=== PATIENT | male | born 1980 | race Caucasian/White ===

== ENCOUNTER 2017-11-17 11:37 | Emergency (ER) | payer OTHER ==
[~2017-11-17] VITALS: Ht 172.7 cm; Wt 62.5 kg
[2017-11-17 12:08] LABS: HEMATOCRIT 45.2 % (42.0-52.0); HEMOGLOBIN 15.3 gm/dL (14.0-18.0); MCH 32.2 pg (26.0-34.0); MCHC 33.9 g/dL (28.0-37.0); MCV 95.2 fL (80.0-100.0); MPV 6.6 fl. (7.2-11.1); NUCLEATED RBCS 0 /100WBC; PLATELET COUNT* 359 thou/uL (150-400); RBC 4.75 mil/uL (4.50-6.00); RDW-CV 15.1 % (10.5-14.5)
[2017-11-17 12:13] LABS: CALCIUM 9.9 mg/dL (8.5-10.1); CREATININE 0.6 mg/dL (0.6-1.3); POTASSIUM 4.2 mmol/L (3.5-5.1)
[2017-11-17 12:18] LABS: ALBUMIN 4.4 g/dL (3.4-5.0); TOTAL BILIRUBIN 0.5 mg/dL (<0.1-1.0); TOTAL PROTEIN 7.6 g/dL (6.4-8.2)
[2017-11-17 12:40] LABS: URINE BILIRUBIN NEGATIVE (Negative); URINE BLOOD NEGATIVE (Negative); URINE CLARITY CLEAR; URINE COLOR YELLOW; URINE GLUCOSE-RANDOM NEGATIVE (Negative); URINE KETONES NEGATIVE (Negative); URINE LEUKOCYTES-REFLEX NEGATIVE (Negative); URINE NITRITE-REFLEX NEGATIVE (Negative); URINE PROTEIN NEGATIVE (Negative); URINE SPECIFIC GRAVITY <= 1.005 (1.005-1.030); URINE UROBILINOGEN 0.2 E.U./dl (0.2-1.0)
[2017-11-17 12:58] LABS: AMP/METHAMP Negative (Negative); BARBITURATES Negative (Negative); BENZODIAZEPINES Negative (Negative); COCAINE Negative (Negative); METHADONE Negative (Negative); OPIATES Negative (Negative); PCP Negative (Negative); THC Negative (Negative)
[2017-11-17 13:53] LABS: ABSOLUTE BASOPHILS 0.1 thou/uL (0.0-0.2); ABSOLUTE LYMPHOCYTES 0.7 thou/uL (0.8-5.3); ABSOLUTE MONOCYTES 0.3 thou/uL (0.0-1.2)
[2017-11-17 13:54] LABS: MACROCYTES Occasional; PLATELET ESTIMATE ADEQUATE
[2017-11-17] MEDS ORDERED: HYDROXYZINE HCL25 M2 PO (14:55)
[2017-11-17 14:58] VITALS: BP 116/74
--- NOTE | 2017-11-17 17:34 | EKG ---
[place] [address] ELECTROCARDIOGRAM REPORT Name: KISHORE CHANEL Room: [facility]#: [id number] Admission: 11/17/17 Attend Phys: Discharge: 11/17/17 Date of : 80 Report #: [id number] THIS REPORT FOR: //name// [facility] ED Test Date: 2017-11-17 Test Time: 11:43:30 Pat Name: KISHORE CHANEL Department: Room: Gender: M Training Executive: Jennifer MURPHY : 1980 Requested By: Marie Segal Order Number: [id number] MD: Errol Jones Measurements Intervals [place] Rate: 108 P: 46 IN: 155 QRS: -8 QRSD: 89 T: 56 QT: 328 QTc: 440 Interpretive Statements Sinus tachycardia Probable septal infarct, old No previous ECG available for comparison Electronically Signed On 11-17-2017 17:34:44 CDT by Errol Jones [email or web address] <ELECTRONICALLY SIGNED> By: Errol Jones MD, [facility] 11/17/17 1734 1143 1143 Errol Jones MD, FACC /EPI
== END 2017-11-17 15:10 | disposition home or self-care (01) ==
LOC: M.ERS 11:37
PROVIDERS: Nurse Practitioner Family
DX: F41.9 Anxiety disorder, unspecified (principal); F10.10 Alcohol abuse, uncomplicated; R25.1 Tremor, unspecified; Z88.0 Allergy status to penicillin; Z88.5 Allergy status to narcotic agent

== ENCOUNTER 2018-02-06 14:01 | Inpatient (IN) | payer OTHER ==
[~2018-02-06] VITALS: Ht 170.2 cm; Wt 59.0 kg
[~2018-02-06 14:01] MED LIST: HYDROXYZINE HCL25 M2 PO
[2018-02-06 14:05] VITALS: BP 153/78
[2018-02-06] MEDS ORDERED: OMEPRAZOLE40 MG PO (14:21)
[2018-02-06] MEDS ORDERED: EFFEXOR XR37.5 MG PO (14:21)
[2018-02-06] MEDS ORDERED: ROSUVASTATIN CA20 MG PO (14:22)
[2018-02-06 14:40] LABS: ABSOLUTE BASOPHILS 0.1 thou/uL (0.0-0.2); ABSOLUTE LYMPHOCYTES 1.6 thou/uL (0.8-5.3); ABSOLUTE MONOCYTES 0.6 thou/uL (0.0-1.2); ABSOLUTE NEUTROPHILS 6.6 thou/uL (1.6-8.1); BASOPHILS 0.9 %; EOSINOPHILS 0.2 %; HEMATOCRIT 45.3 % (42.0-52.0); HEMOGLOBIN 15.3 gm/dL (14.0-18.0); LYMPHOCYTES 18.5 %; MCH 31.4 pg (26.0-34.0); MCHC 33.7 g/dL (28.0-37.0); MCV 93.3 fL (80.0-100.0); MONOCYTES 6.4 %; MPV 6.4 fl. (7.2-11.1); NUCLEATED RBCS 0 /100WBC; PLATELET COUNT* 244 thou/uL (150-400); RBC 4.86 mil/uL (4.50-6.00); RDW-CV 14.6 % (10.5-14.5); WBC 8.9 thou/uL (4.0-11.0)
[2018-02-06 14:48] LABS: ANION GAP 14 mmol/L (7-16); BUN 16 mg/dL (7-18); CALCIUM 8.5 mg/dL (8.5-10.1); CHLORIDE 100 mmol/L (98-107); CO2 23 mmol/L (21-32); CREATININE 0.7 mg/dL (0.6-1.3); GLUCOSE 137 mg/dL (70-99); POTASSIUM 3.6 mmol/L (3.5-5.1); SODIUM 137 mmol/L (136-145)
[2018-02-06 14:50] LABS: APTT 22.8 Seconds (25.0-31.3); PROTIME 10.3 Seconds (9.20-11.50)
[2018-02-06 14:55] LABS: ALBUMIN 3.5 g/dL (3.4-5.0); ALKALINE PHOSPHATASE 103 U/L (46-116); LIPASE 1968 U/L (73-393); SGOT 182 U/L (15-37); SGPT 70 U/L (30-65); TOTAL BILIRUBIN 0.7 mg/dL (<0.1-1.0); TOTAL PROTEIN 6.7 g/dL (6.4-8.2); TROPONIN-I LEVEL <0.06 ng/mL (<0.06)
[2018-02-06 16:22] VITALS: BP 126/91
[2018-02-06 16:35] VITALS: BP 135/92
[2018-02-06 18:00] VITALS: BP 127/95
[2018-02-06 19:40] VITALS: BP 124/83
[2018-02-07] VITALS (7 sets, daily range): BP systolic 129–141; BP diastolic 62–96
[2018-02-07 08:38] LABS: ALBUMIN 2.9 g/dL (3.4-5.0); CALCIUM 7.8 mg/dL (8.5-10.1); CREATININE 0.5 mg/dL (0.6-1.3); POTASSIUM 3.2 mmol/L (3.5-5.1); TOTAL BILIRUBIN 1.1 mg/dL (<0.1-1.0); TOTAL PROTEIN 5.8 g/dL (6.4-8.2)
--- NOTE | 2018-02-07 12:59 | EKG ---
[place] [address] ELECTROCARDIOGRAM REPORT Name: KISHORE CHANEL Room: [address] ADM IN [facility]#: [id number] Admission: 02/06/18 Attend Phys: Flynn Sarmiento Discharge: Date of : [birth year] Report #: [id number] THIS REPORT FOR: //name// [facility] ED Test Date: 2018-02-06 Test Time: 14:12:21 Pat Name: KISHORE CHANEL Department: Room: [facility] Gender: M Cinder Block Mason: : 1980 Requested By: Mansi Rodriguez Order Number: [id number] MD: Errol Jones Measurements Intervals [place] Rate: 110 P: 56 [place]: 155 QRS: 12 QRSD: 98 T: 53 QT: 335 QTc: 454 Interpretive Statements Sinus tachycardia Probable septal infarct, old Compared to ECG 11/17/2017 11:43:30 Myocardial infarct finding still present Electronically Signed On 02-07-2018 12:59:33 CDT by Errol Jones [email or web address] <ELECTRONICALLY SIGNED> By: Errol Jones MD, [facility] 02/07/18 1259 1412 1412 Errol Jones MD, [facility] /EPI
[2018-02-08 04:00] VITALS: BP 135/94
[2018-02-08 04:49] LABS: ALBUMIN 3.3 g/dL (3.4-5.0); CALCIUM 8.4 mg/dL (8.5-10.1); CREATININE 0.6 mg/dL (0.6-1.3); MAGNESIUM 1.7 mg/dL (1.8-2.4); PHOSPHORUS* 3.1 mg/dL (2.5-4.9); TOTAL PROTEIN 6.3 g/dL (6.4-8.2)
[2018-02-08 04:54] LABS: POTASSIUM 4.2 mmol/L (3.5-5.1)
[2018-02-08 08:10] VITALS: BP 148/100
[2018-02-08] MEDS ORDERED: HYDROXYZINE HCL25 M2 PO (10:40)
[2018-02-08] MEDS ORDERED: OMEPRAZOLE40 MG PO (10:40)
[2018-02-08] MEDS ORDERED: EFFEXOR XR37.5 MG PO (10:40)
[2018-02-08] MEDS ORDERED: ROSUVASTATIN CA20 MG PO (10:40)
[2018-02-08 11:15] VITALS: BP 148/100
[2018-02-08 11:16] LABS: CHOLESTEROL 205 mg/dL (<200); HDL CHOLESTEROL 108 mg/dL (>40); LDL CHOLESTEROL 83 mg/dL (<100); TC:HDL 1.9 Ratio (Not establshd); TRIGLYCERIDE 74 mg/dL (<150); VLDL 15 mg/dL (<40)
[2018-02-08 11:17] LABS: SERUM ASSESSMENT Clear
[2018-02-08] MEDS ORDERED: NICOTINE TRANSD21 M1 (11:24)
[2018-02-08] MEDS ORDERED: PRENATAL PO (11:25)
[2018-02-08] MEDS ORDERED: VITAMIN B-1100 M1 PO (11:26)
[2018-02-08] MEDS ORDERED: ATIVAN1 MG PO (11:27)
--- NOTE | 2018-02-17 13:22 | CON ---
[address] [address] CONSULTATION Name: KISHORE CHANEL Room: [address]#: [id number] Admission: 02/06/18 Attend Phys: Flynn Sarmiento Discharge: 02/08/18 Date of : [birth year] Report #: [id number] THIS REPORT FOR: //name// CC: NANCY physician/PCP Nasir Tejeda DATE OF SERVICE: 02/07/2018 HISTORY OF PRESENT ILLNESS: This is a pleasant 37-year-old male, with history of chronic alcohol abuse, who is presenting with epigastric abdominal pain. The patient reports the pain began 3 days back and it was located in the epigastrium. The patient reports that the pain is severe, burning in character and nonradiating. The patient reports the pain has no particular aggravating or alleviating factors and this is his first episode of such pain. Pain is associated with nausea and vomiting. The patient reports vomiting several times per day over the last few days. He denies any hematemesis, hematochezia or diarrhea. The patient reports that he drinks 1 pint of whiskey every day, and he has been doing this for several years in the past. The patient also reports smoking, and he smokes a pack a day, has been doing this for 20+ years. PAST MEDICAL HISTORY: Significant for hypertension and hypercholesterolemia. PAST SURGICAL HISTORY: The patient had jaw surgery from trauma. SOCIAL HISTORY: As mentioned above, he consumes 1 pint of whiskey a day and was a pack a day smoker. He denies any recreational drug use. FAMILY HISTORY: Reviewed and nonsignificant. PHYSICAL EXAMINATION: VITAL SIGNS: Temperature 36.9, pulse rate 74, respirations 18, blood pressure 140/95. GENERAL: The patient is alert, awake, oriented x 3. HEENT: Pupils are equal, reactive to light and accommodation. Mucous membranes are moist. There is no congestion. NECK: Supple. There is no supraclavicular lymphadenopathy. CARDIOVASCULAR: Rate and rhythm regular, S1, S2 present. LUNGS: Clear to auscultation bilaterally. ABDOMEN: Epigastric tenderness present. There is no guarding, no rigidity. Bowel sounds are present. EXTREMITIES: Warm, well perfused. There is no focal neurological deficit. SKIN: Warm and dry. LABORATORY DATA: WBC count 8.9, hemoglobin 15.3, hematocrit 45.3, platelet count 244. Sodium 135, potassium 3.2, chloride 101, bicarbonate 27, BUN 9, creatinine 0.5, total bilirubin 1.1, AST 93, ALT 51. [place] [address] CONSULTATION Name: KISHORE CHANEL Room: [address] IN ..#: [id number] Admission: 02/06/18 Attend Phys: Flynn Sarmiento Discharge: 02/08/18 Date of : [birth year] Report #: [id number] 1968. INR 1.0. ASSESSMENT AND PLAN: This is a pleasant 37-year-old male presenting with epigastric abdominal pain. The patient found to have significant history of alcohol abuse, and lipase was elevated on presentation. All of the above suggests the presence of acute pancreatitis. The patient appears to have mild acute pancreatitis. The presence of local complications is not known as he did not have any cross sectional imaging. I will order ultrasound of the abdomen to look for gallstones or bile duct stones. Since the patient is improving clinically, we will hold off on ordering CT scan, but this can be done if the patient begins showing signs of deterioration and is unable to tolerate p.o. diet. Continue conservative management for acute pancreatitis. Strongly encouraged cessation of both smoking and alcohol use as both of them contribute to development of chronic pancreatitis and pancreatic cancer. <ELECTRONICALLY SIGNED> By: Farhad Hathaway MD 02/17/18 1322 1458 1848Farhad Hathaway MD /nt
== END 2018-02-08 12:41 | disposition home or self-care (01) | DRG 440 ==
LOC: M.ERS 14:01 → M.TBA-ER 15:56 → M.3W 15:56
PROVIDERS: Personal Emergency Response Attendant; ADMIT Internal Medicine
DX: K85.90 Acute pancreatitis without necrosis or infection, unspecified (principal); F41.9 Anxiety disorder, unspecified; E78.00 Pure hypercholesterolemia, unspecified; K21.9 Gastro-esophageal reflux disease without esophagitis; F17.210 Nicotine dependence, cigarettes, uncomplicated; F10.10 Alcohol abuse, uncomplicated; Y90.9 Presence of alcohol in blood, level not specified; I10 Essential (primary) hypertension; Z88.8 Allergy status to other drugs, medicaments and biological substances; Z88.0 Allergy status to penicillin; Z79.899 Other long term (current) drug therapy; Z83.79 Family history of other diseases of the digestive system

== ENCOUNTER 2018-03-20 19:17 | Inpatient (IN) | payer OTHER ==
[~2018-03-20] VITALS: Ht 170.2 cm; Wt 60.1 kg
--- NOTE | ~2018-03-20 | EKG ---
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
[~2018-03-20 19:17] MED LIST changes: +ATIVAN1 MG PO; +EFFEXOR XR37.5 MG PO; +NICOTINE TRANSD21 M1; +OMEPRAZOLE40 MG PO; +PRENATAL PO; +ROSUVASTATIN CA20 MG PO; +VITAMIN B-1100 M1 PO
[2018-03-20 19:22] VITALS: BP 149/98
[2018-03-20] MEDS ORDERED: GARLIC1 EACH PO (19:33)
[2018-03-20 20:09] LABS: ABSOLUTE BASOPHILS 0.1 thou/uL (0.0-0.2); ABSOLUTE EOSINOPHILS 0.2 thou/uL (0.0-0.7); ABSOLUTE LYMPHOCYTES 2.6 thou/uL (0.8-5.3); ABSOLUTE MONOCYTES 0.5 thou/uL (0.0-1.2); ABSOLUTE NEUTROPHILS 2.2 thou/uL (1.6-8.1); BASOPHILS 1.3 %; EOSINOPHILS 3.6 %; HEMATOCRIT 45.3 % (42.0-52.0); HEMOGLOBIN 15.2 gm/dL (14.0-18.0); LYMPHOCYTES 46.6 %; MCH 32.2 pg (26.0-34.0); MCHC 33.6 g/dL (28.0-37.0); MONOCYTES 8.3 %; MPV 6.7 fl. (7.2-11.1); NUCLEATED RBCS 0 /100WBC; PLATELET COUNT* 257 thou/uL (150-400); POLYS 40.2 %; RBC 4.72 mil/uL (4.50-6.00); RDW-CV 16.1 % (10.5-14.5); WBC 5.5 thou/uL (4.0-11.0)
[2018-03-20 20:16] LABS: ANION GAP 9 mmol/L (7-16); BUN 12 mg/dL (7-18); CALCIUM 8.5 mg/dL (8.5-10.1); CHLORIDE 106 mmol/L (98-107); CO2 28 mmol/L (21-32); CREATININE 0.7 mg/dL (0.6-1.3); GLUCOSE 120 mg/dL (70-99); POTASSIUM 3.8 mmol/L (3.5-5.1); SODIUM 143 mmol/L (136-145)
[2018-03-20 20:27] LABS: ALBUMIN 3.8 g/dL (3.4-5.0); ALKALINE PHOSPHATASE 128 U/L (46-116); LIPASE 719 U/L (73-393); NT-PRO BRAIN NAT PEPTIDE 10 pg/mL (<300); SGOT 158 U/L (15-37); SGPT 110 U/L (30-65); TOTAL BILIRUBIN 0.3 mg/dL (<0.1-1.0); TOTAL PROTEIN 7.2 g/dL (6.4-8.2); TROPONIN-I LEVEL <0.06 ng/mL (<0.06)
[2018-03-20 21:50] VITALS: BP 142/94
[2018-03-20 22:05] VITALS: BP 145/89
[2018-03-21] VITALS (7 sets, daily range): BP systolic 110–143; BP diastolic 59–91
[2018-03-21 03:21] LABS: URINE BILIRUBIN NEGATIVE (Negative); URINE BLOOD NEGATIVE (Negative); URINE CLARITY CLEAR; URINE COLOR YELLOW; URINE GLUCOSE-RANDOM NEGATIVE (Negative); URINE KETONES NEGATIVE (Negative); URINE LEUKOCYTES-REFLEX NEGATIVE (Negative); URINE NITRITE-REFLEX NEGATIVE (Negative); URINE PROTEIN NEGATIVE (Negative); URINE SPECIFIC GRAVITY 1.025 (1.005-1.030); URINE UROBILINOGEN 0.2 E.U./dl (0.2-1.0)
[2018-03-21 04:58] LABS: HEMATOCRIT 39.9 % (42.0-52.0); HEMOGLOBIN 13.4 gm/dL (14.0-18.0); MCH 32.5 pg (26.0-34.0); MCHC 33.6 g/dL (28.0-37.0); MCV 96.8 fL (80.0-100.0); MPV 6.6 fl. (7.2-11.1); RBC 4.13 mil/uL (4.50-6.00); RDW-CV 16.5 % (10.5-14.5); WBC 4.8 thou/uL (4.0-11.0)
[2018-03-21 05:25] LABS: ALBUMIN 3.1 g/dL (3.4-5.0); CALCIUM 7.8 mg/dL (8.5-10.1); CREATININE 0.6 mg/dL (0.6-1.3); POTASSIUM 3.9 mmol/L (3.5-5.1); TOTAL BILIRUBIN 0.4 mg/dL (<0.1-1.0); TOTAL PROTEIN 5.7 g/dL (6.4-8.2)
[2018-03-21] MEDS ORDERED: IBUPROFEN 600600 M1 PO (09:44)
[2018-03-21] MEDS ORDERED: CARAFATE 1 GM TA1 G1 PO (09:44)
[2018-03-21] MEDS ORDERED: PRENATAL PO (09:44)
[2018-03-21] MEDS ORDERED: PANTOPRAZOLE SO40 M1 PO (09:44)
--- NOTE | 2018-03-21 17:51 | EKG ---
[place] [address] ELECTROCARDIOGRAM REPORT Name: KISHORE CHANEL Room: [address] ADM IN ..#: [id number] Admission: 03/20/18 Attend Phys: Damien Barajas MD Discharge: Date of : [birth year] Report #: [id number] THIS REPORT FOR: //name// [facility] ED Test Date: 2018-03-20 Test Time: 19:27:16 Pat Name: KISHORE CHANEL Department: Room: [address] Gender: M Gynecologist: : 1980 Requested By: Damien Barajas Order Number: [id number] MD: Neil Mota Measurements Intervals [place] Rate: 95 P: 53 [place]: 131 QRS: 5 QRSD: 98 T: 49 QT: 351 QTc: 442 Interpretive Statements Sinus rhythm Compared to ECG 02/06/2018 14:12:21 Sinus tachycardia no longer present Myocardial infarct finding no longer present Electronically Signed On 03-21-2018 17:51:15 CDT by Neil Mota [email or web address] <ELECTRONICALLY SIGNED> By: Neil Mota MD, [facility] 03/21/18 1751 26 26 Neil Mota MD, FACC /EPI
--- NOTE | 2018-03-21 17:52 | EKG ---
[place] [address] ELECTROCARDIOGRAM REPORT Name: KISHORE CHANEL Room: [address] ADM IN ..#: [id number] Admission: 03/20/18 Attend Phys: Damien Barajas MD Discharge: Date of : [birth year] Report #: [id number] THIS REPORT FOR: //name// [facility] Test Date: 2018-03-20 Test Time: 22:42:29 Pat Name: KISHORE CHANEL Department: Room: [facility] Gender: M Coding Compliance Auditor: UNKNOWN : 1980 Requested By: Annette Cole Order Number: [id number] MD: Neil Mota Measurements Intervals [place] Rate: 96 P: 119 [place]: 148 QRS: 170 QRSD: 104 T: 123 QT: 349 QTc: 441 Interpretive Statements Right and left arm electrode reversal, interpretation assumes no reversal Sinus tachycardia Right axis deviation Baseline wander in lead(s) V4,V6 Compared to ECG 02/06/2018 14:12:21 Right-axis deviation now present Electronically Signed On 03-21-2018 17:52:06 CDT by Neil Mota [email or web address] <ELECTRONICALLY SIGNED> By: Neil Mota MD, FACC 03/21/18 1752 2242 2242 Neil Mota MD, FACC /EPI
[2018-03-22] VITALS (7 sets, daily range): BP systolic 134–156; BP diastolic 81–104
[2018-03-22 04:38] LABS: HEMATOCRIT 43.3 % (42.0-52.0); HEMOGLOBIN 14.5 gm/dL (14.0-18.0); MCHC 33.4 g/dL (28.0-37.0); MCV 95.7 fL (80.0-100.0); MPV 6.8 fl. (7.2-11.1); RBC 4.52 mil/uL (4.50-6.00); RDW-CV 16.1 % (10.5-14.5); WBC 4.8 thou/uL (4.0-11.0)
[2018-03-22 05:00] LABS: ALBUMIN 3.3 g/dL (3.4-5.0); CALCIUM 8.4 mg/dL (8.5-10.1); CREATININE 0.6 mg/dL (0.6-1.3); MAGNESIUM 1.6 mg/dL (1.8-2.4); POTASSIUM 3.3 mmol/L (3.5-5.1); TOTAL BILIRUBIN 1.1 mg/dL (<0.1-1.0); TOTAL PROTEIN 6.3 g/dL (6.4-8.2)
[2018-03-22] MEDS ORDERED: ATIVAN1 MG PO (10:32)
== END 2018-03-22 14:50 | disposition home or self-care (01) | DRG 391 ==
LOC: M.ERS 19:17 → M.TBA-ER 21:06 → M.2W 21:06
PROVIDERS: Emergency Medicine; Internal Medicine; ADMIT Internal Medicine
DX: K21.9 Gastro-esophageal reflux disease without esophagitis (principal); K85.90 Acute pancreatitis without necrosis or infection, unspecified; F41.9 Anxiety disorder, unspecified; E78.00 Pure hypercholesterolemia, unspecified; I10 Essential (primary) hypertension; F17.200 Nicotine dependence, unspecified, uncomplicated; Y90.9 Presence of alcohol in blood, level not specified; F10.229 Alcohol dependence with intoxication, unspecified; Z88.0 Allergy status to penicillin; Z88.8 Allergy status to other drugs, medicaments and biological substances; Z79.899 Other long term (current) drug therapy; Z28.21 Immunization not carried out because of patient refusal

== ENCOUNTER 2018-09-26 12:43 | Inpatient (IN) | payer OTHER ==
[~2018-09-26] VITALS: Ht 170.2 cm; Wt 65.3 kg
--- NOTE | ~2018-09-26 | PROC ---
[address] [address] PROCEDURE REPORT Name: KISHORE CHANEL Room: [address] IN ..#: [id number] Admission: 09/26/18 Attend Phys: Damien Barajas MD Discharge: 09/28/18 Date of : [birth year] Report #: [id number] THIS REPORT FOR: //name// For GI report, please see the Provation report in Perceptive 7 content. By: 0830Medical Records Staff TERA /KADIE
[~2018-09-26 12:43] MED LIST changes: +CARAFATE 1 GM TA1 G1 PO; +GARLIC1 EACH PO; +IBUPROFEN 600600 M1 PO; +PANTOPRAZOLE SO40 M1 PO
[2018-09-26 12:50] VITALS: BP 156/92
[2018-09-26] MEDS ORDERED: ZOFRAN ODT4 MG PO (12:55)
[2018-09-26 13:26] LABS: ABSOLUTE BASOPHILS 0.1 thou/uL (0.0-0.2); ABSOLUTE LYMPHOCYTES 1.1 thou/uL (0.8-5.3); ABSOLUTE MONOCYTES 0.5 thou/uL (0.0-1.2); ABSOLUTE NEUTROPHILS 3.4 thou/uL (1.6-8.1); BASOPHILS 1.2 %; EOSINOPHILS 0.4 %; HEMATOCRIT 44.9 % (42.0-52.0); HEMOGLOBIN 15.7 gm/dL (14.0-18.0); LYMPHOCYTES 21.9 %; MCH 32.9 pg (26.0-34.0); MCHC 34.9 g/dL (28.0-37.0); MCV 94.3 fL (80.0-100.0); MONOCYTES 9.2 %; MPV 6.9 fl. (7.2-11.1); NUCLEATED RBCS 0 /100WBC; PLATELET COUNT* 205 thou/uL (150-400); POLYS 67.3 %; RBC 4.76 mil/uL (4.50-6.00); RDW-CV 14.1 % (10.5-14.5); WBC 5.1 thou/uL (4.0-11.0)
[2018-09-26 13:32] LABS: CALCIUM 9.4 mg/dL (8.5-10.1); CREATININE 0.8 mg/dL (0.6-1.3); POTASSIUM 3.3 mmol/L (3.5-5.1)
[2018-09-26 13:37] LABS: ALBUMIN 3.9 g/dL (3.4-5.0); TOTAL BILIRUBIN 1.4 mg/dL (<0.1-1.0); TOTAL PROTEIN 7.4 g/dL (6.4-8.2)
[2018-09-26 14:57] LABS: URINE BILIRUBIN NEGATIVE (Negative); URINE BLOOD NEGATIVE (Negative); URINE CLARITY CLEAR; URINE COLOR DARK YELLOW; URINE GLUCOSE-RANDOM NEGATIVE (Negative); URINE KETONES TRACE (Negative); URINE LEUKOCYTES-REFLEX NEGATIVE (Negative); URINE NITRITE-REFLEX NEGATIVE (Negative); URINE PROTEIN TRACE (Negative); URINE UROBILINOGEN 0.2 E.U./dl (0.2-1.0)
--- NOTE | 2018-09-26 15:29 | EKG ---
[place] [address] ELECTROCARDIOGRAM REPORT Name: KISHORE CHANEL Room: [facility]#: [id number] Admission: 09/26/18 Attend Phys: Discharge: Date of : [birth year] Report #: [id number] THIS REPORT FOR: //name// [facility] ED Test Date: 2018-09-26 Test Time: 12:49:35 Pat Name: KISHORE CHANEL Department: Room: Gender: M Oyster Preparer: SEVERIANO : 1980 Requested By: Neetu Solomon Order Number: [id number] Anusha MD: Errol Jones Measurements Intervals [place] Rate: 110 P: 76 [place]: 131 QRS: 35 QRSD: 92 T: 26 QT: 351 QTc: 475 Interpretive Statements Sinus tachycardia artifact noted LAE, consider biatrial enlargement Anteroseptal infarct, old Compared to ECG 03/20/2018 22:42:29 Myocardial infarct finding now present Right-axis deviation no longer present Electronically Signed On 09-26-2018 15:29:37 CDT by Errol Jones [email or web address] <ELECTRONICALLY SIGNED> By: Errol Jones MD, [facility] 09/26/18 1529 1249 1249 Errol Jones MD, [facility] /EPI
[2018-09-26 17:33] VITALS: BP 128/92
[2018-09-26 18:00] VITALS: BP 129/96
[2018-09-26 18:05] VITALS: BP 121/79
[2018-09-26 20:10] VITALS: BP 139/92
[2018-09-26 20:20] LABS: AMP/METHAMP Negative (Negative); BARBITURATES Negative (Negative); BENZODIAZEPINES Negative (Negative); COCAINE Negative (Negative); METHADONE Negative (Negative); OPIATES POSITIVE (Negative); PCP Negative (Negative); THC POSITIVE (Negative)
[2018-09-27] VITALS: BP 129/86
[2018-09-27 04:00] VITALS: BP 157/92
[2018-09-27 05:29] LABS: HEMATOCRIT 42.5 % (42.0-52.0); HEMOGLOBIN 14.1 gm/dL (14.0-18.0); MCH 32.1 pg (26.0-34.0); MCHC 33.1 g/dL (28.0-37.0); MCV 96.9 fL (80.0-100.0); MPV 7.5 fl. (7.2-11.1); RBC 4.39 mil/uL (4.50-6.00); RDW-CV 14.3 % (10.5-14.5); WBC 4.6 thou/uL (4.0-11.0)
[2018-09-27 06:04] LABS: ALBUMIN 3.1 g/dL (3.4-5.0); CALCIUM 8.2 mg/dL (8.5-10.1); CREATININE 0.7 mg/dL (0.6-1.3); MAGNESIUM 1.6 mg/dL (1.8-2.4); POTASSIUM 3.7 mmol/L (3.5-5.1); TOTAL BILIRUBIN 1.3 mg/dL (<0.1-1.0); TOTAL PROTEIN 6.2 g/dL (6.4-8.2)
[2018-09-27 08:18] VITALS: BP 140/95
[2018-09-27 13:32] VITALS: BP 157/95
[2018-09-27 17:16] VITALS: BP 130/90
[2018-09-27 20:00] VITALS: BP 142/90
[2018-09-28] VITALS: BP 127/96
[2018-09-28 04:00] VITALS: BP 106/66
[2018-09-28 06:06] LABS: ALBUMIN 3.4 g/dL (3.4-5.0); CREATININE 0.7 mg/dL (0.6-1.3); MAGNESIUM 2.1 mg/dL (1.8-2.4); PHOSPHORUS* 3.9 mg/dL (2.5-4.9); POTASSIUM 3.3 mmol/L (3.5-5.1); TOTAL BILIRUBIN 1.2 mg/dL (<0.1-1.0); TOTAL PROTEIN 6.8 g/dL (6.4-8.2)
[2018-09-28 07:45] VITALS: BP 126/78
--- NOTE | 2018-09-28 12:52 | CON ---
[address] [address] CONSULTATION Name: KISHORE CHANEL Room: [address] IN [facility]#: [id number] Admission: 09/26/18 Attend Phys: Damien Barajas MD Discharge: Date of : [birth year] Report #: [id number] THIS REPORT FOR: //name// CC: FAM physician/PCP Damien Barajas MD DATE OF SERVICE: 09/27/2018 REQUESTING PHYSICIAN: Daimen Barajas M.D. REASON FOR CONSULTATION: Epigastric pain and nausea and intractable vomiting. HISTORY OF PRESENT ILLNESS: This is a 38-year-old male with history of alcoholism, who admits to drinking 10 shots of whiskey per day. The patient has had multiple admissions at [facility] in [facility] for recurrent pancreatitis. Since admission, he had LFTs and lipase checked. His LFTs are elevated and consistent with alcoholic liver disease. His lipase is in 400 range. The patient also had initial persistent vomiting, which has subsided. He is currently on n.p.o. status and reports that his overall condition has improved since yesterday. PAST MEDICAL HISTORY: Significant for history of pancreatitis, alcoholism, GERD, hypercholesterolemia, hypertension, vasectomy and jaw surgery. ALLERGIES: Significant for CODEINE and PENICILLIN. MEDICATIONS: Please refer to MAR. SOCIAL HISTORY: The patient lives at home. He is employed. He has long history of alcoholism and he admits to smoking cigarettes. FAMILY HISTORY: Negative for GI malignancy. PHYSICAL EXAMINATION: VITAL SIGNS: Reveals blood pressure of 140/95, respirations 16, pulse 71 and temperature 98.1. LUNGS: Clear. CARDIOVASCULAR: Regular. ABDOMEN: Soft, mildly tender to palpation in the epigastric region. Bowel sounds are positive. NEUROLOGICAL: The patient is alert and oriented x 3. LABORATORY DATA: Labs reveal sodium of 141, potassium 3.7, BUN is 6, [place] [address] CONSULTATION Name: KISHORE CHANEL Jose Alberto Room: [address] IN [facility]#: [id number] Admission: 09/26/18 Attend Phys: Damien Barajas MD Discharge: Date of : [birth year] Report #: [id number] 0.7 and glucose 92. AST is 269 and ALT is 112. Alkaline phosphatase is 132, total bilirubin is 1.3 and albumin is 3.1. WBC is 4.6 with hemoglobin of 14.1 and platelet of 175. IMAGING DATA: CT of abdomen and pelvis was obtained on admission. This was significant for diffuse fatty infiltration of the liver and 2 cm triangular-shaped area of the decreased density within the medial segment of liver, which may represent focal fatty infiltration. There are also mild peripancreatic and periduodenal inflammatory changes adjacent to the head of the pancreas and second portion of the duodenum. ASSESSMENT AND PLAN: Given CT findings, we will perform an upper endoscopy to further evaluate his upper gastrointestinal including the duodenum. The patient needs to be abstinent from alcohol as he has had recurrent pancreatitis secondary to alcohol use. We will make further recommendation based on finding. Meanwhile, I will allow him to have clear liquids and also follow up his lipase and CMP. <ELECTRONICALLY SIGNED> By: Norman Reddy MD 09/28/18 1252 1125 2225Norman Reddy MD /nt
[2018-09-28] MEDS ORDERED: PROTONIX40 M1 PO (14:40)
[2018-09-28 14:47] VITALS: BP 126/78
[2018-09-28 15:14] VITALS: BP 126/78
--- NOTE | 2018-09-30 16:06 | PATH ---
[address] [address] PATHOLOGY RPT PROCEDURE Name: JOSUE CHANEL Room: [address] IN .R.#: [id number] Admission: 09/26/18 Date of : [birth year] Discharge: 09/28/18 Report #: [id number] Path Case #: [id number] [facility] Accession Number: [id number] . 01 Material submitted: . esophagus - BIOPSY ESOPHAGUS POSSIBLE BARRETTS . 01 Clinical history: . None provided . 02 Diagnosis: Biopsy of esophagus: - Benign esophageal and gastric/columnar types mucosa with mild chronic and active inflammation typical of reflux, negative for definite/diagnostic goblet cells/Sandra's metaplasia, granulomas and dysplasia. (MARISA:ted; 09/30/2018) MBMasha/09/30/2018 . 02 Electronically signed: . Davie Brito MD, Pathologist NPI- [id number] . 01 Gross description: . Received in formalin labeled "Josue Chanel, biopsy of esophagus, possible Sandra's," are 2 segments of loco soft tissue measuring 0.3 x 0.2 x 0.1 cm in aggregate dimensions and ranging from 0.1 to 0.2 cm in maximum dimension. The specimen is submitted entirely in cassette A1. (TSD; 09/29/2018) TOB/TOB . 02 Pathologist provided ICD-10: K20.9 . 02 CPT . 525979 Specimen Comment: A courtesy copy of this report has been sent to Specimen Comment: [phone], . Specimen Comment: Report sent to / DR PRATHER Performed at: [address], [place] [address] MD Tone Babcock MD Phone: [phone] Performed at: 02 [facility] [address], [place], [place] [address] MD Davie Brito MD Phone: [phone]
== END 2018-09-28 15:21 | disposition home or self-care (01) | DRG 432 ==
LOC: M.ERS 12:43 → M.2W 15:46 → M.TBA-ER 15:46 → M.2W 17:48
PROVIDERS: Emergency Medicine; Nurse Practitioner Family; ADMIT Internal Medicine
PROC: 0DB48ZX Excision of Esophagogastric Junction, Via Natural or Artificial Opening Endoscopic, Diagnostic (ICD-10-PCS; principal; 2018-09-28)
DX: K70.10 Alcoholic hepatitis without ascites (principal); K85.20 Alcohol induced acute pancreatitis without necrosis or infection; R65.10 Systemic inflammatory response syndrome (SIRS) of non-infectious origin without acute organ dysfunction; F41.9 Anxiety disorder, unspecified; E78.00 Pure hypercholesterolemia, unspecified; K21.9 Gastro-esophageal reflux disease without esophagitis; I10 Essential (primary) hypertension; F10.10 Alcohol abuse, uncomplicated; F17.210 Nicotine dependence, cigarettes, uncomplicated; E87.6 Hypokalemia; E86.9 Volume depletion, unspecified; K44.9 Diaphragmatic hernia without obstruction or gangrene; Z79.899 Other long term (current) drug therapy; Z98.52 Vasectomy status; Z88.6 Allergy status to analgesic agent; Z88.0 Allergy status to penicillin

== ENCOUNTER 2019-04-19 05:22 | Emergency (ER) | payer OTHER ==
[~2019-04-19] VITALS: Ht 170.2 cm; Wt 59.0 kg
[~2019-04-19 05:22] MED LIST changes: +CRESTOR5 MG PO; +PROBIOTIC1 EAC1 PO; +PROTONIX40 M1 PO; +VANCOCIN 125 M125 M1 PO; +VENTOLIN HFA 1818 GM INH; +ZOFRAN ODT4 MG PO
[2019-04-19] MEDS ORDERED: OMEPRAZOLE40 MG PO (05:34)
[2019-04-19] MEDS ORDERED: ESCITALOPRAM (05:35)
[2019-04-19] MEDS ORDERED: VENLAFAXINE H37.5 M2 PO (05:36)
[2019-04-19 05:56] LABS: ABSOLUTE BASOPHILS 0.1 thou/uL (0.0-0.2); ABSOLUTE EOSINOPHILS 0.1 thou/uL (0.0-0.7); ABSOLUTE LYMPHOCYTES 2.3 thou/uL (0.8-5.3); ABSOLUTE MONOCYTES 0.6 thou/uL (0.0-1.2); ABSOLUTE NEUTROPHILS 6.5 thou/uL (1.6-8.1); BASOPHILS 0.8 %; EOSINOPHILS 1.3 %; HEMATOCRIT 43.4 % (42.0-52.0); HEMOGLOBIN 15.1 gm/dL (14.0-18.0); LYMPHOCYTES 24.2 %; MCH 31.6 pg (26.0-34.0); MCHC 34.8 g/dL (28.0-37.0); MCV 91.1 fL (80.0-100.0); MONOCYTES 5.8 %; MPV 6.5 fl. (7.2-11.1); NUCLEATED RBCS 0 /100WBC; PLATELET COUNT* 384 thou/uL (150-400); POLYS 67.9 %; RBC 4.76 mil/uL (4.50-6.00); RDW-CV 14.3 % (10.5-14.5); WBC 9.5 thou/uL (4.0-11.0)
[2019-04-19 06:02] LABS: CALCIUM 8.3 mg/dL (8.5-10.1); CREATININE 0.7 mg/dL (0.6-1.3)
[2019-04-19 06:06] LABS: ALBUMIN 3.9 g/dL (3.4-5.0); TOTAL BILIRUBIN 0.4 mg/dL (<0.1-1.0); TOTAL PROTEIN 7.3 g/dL (6.4-8.2)
[2019-04-19] MEDS ORDERED: ZANAFLEX4 M2 PO (06:47)
[2019-04-19] MEDS ORDERED: ROSUVASTATIN CA20 MG PO (06:47)
[2019-04-19] MEDS ORDERED: LEXAPRO 10 MG T10 M2 PO (06:47)
[2019-04-19] MEDS ORDERED: ZOFRAN ODT4 MG PO (06:47)
[2019-04-19] MEDS ORDERED: VENLAFAXINE H37.5 MG PO (06:47)
[2019-04-19] MEDS ORDERED: HYDROXYZINE HCL25 M2 PO (06:47)
[2019-04-19 07:05] VITALS: BP 139/87
--- NOTE | 2019-04-19 11:11 | EKG ---
[place] [address] ELECTROCARDIOGRAM REPORT Name: KISHORE CHANEL Room: [facility]#: [id number] Admission: 04/19/19 Attend Phys: Discharge: 04/19/19 Date of : [birth year] Report #: [id number] THIS REPORT FOR: //name// [facility] ED Test Date: 2019-04-19 Test Time: 05:28:14 Pat Name: KISHORE CHANEL Department: Room: Gender: M Journalism Professor: MANNY : 1980 Requested By: Annette Cole Order Number: [id number] MD: Errol Jones Measurements Intervals [place] Rate: 94 P: 50 PA: 133 QRS: 3 QRSD: 99 T: 43 QT: 388 QTc: 486 Interpretive Statements Sinus rhythm Borderline prolonged QT interval Baseline wander in lead(s) III Compared to ECG 11/26/2018 13:02:26 Sinus tachycardia no longer present Poor R-wave progression no longer present Electronically Signed On 04-19-2019 11:11:04 CLINICAL DATA MANAGEMENT MANAGER by Errol Jones [email or web address] <ELECTRONICALLY SIGNED> By: Errol Jones MD, FACC 04/19/19 1111 0528 0528 Errol Jones MD, [facility] /EPI
== END 2019-04-19 07:05 | disposition home or self-care (01) ==
LOC: M.ERS 05:22
PROVIDERS: Emergency Medicine
DX: R11.2 Nausea with vomiting, unspecified (principal); Z76.0 Encounter for issue of repeat prescription; R10.13 Epigastric pain; F41.9 Anxiety disorder, unspecified; E78.00 Pure hypercholesterolemia, unspecified; K21.9 Gastro-esophageal reflux disease without esophagitis; I10 Essential (primary) hypertension; Z88.5 Allergy status to narcotic agent; Z88.0 Allergy status to penicillin

== ENCOUNTER 2019-05-02 09:04 | Inpatient (IN) | payer OTHER ==
[~2019-05-02] VITALS: Ht 170.2 cm; Wt 63.0 kg
[~2019-05-02 09:04] MED LIST changes: +ESCITALOPRAM; +LEXAPRO 10 MG T10 M2 PO; +VENLAFAXINE H37.5 M2 PO; +VENLAFAXINE H37.5 MG PO; +ZANAFLEX4 M2 PO
[2019-05-02 09:08] VITALS: BP 158/102
[2019-05-02 09:31] LABS: ABSOLUTE BASOPHILS 0.1 thou/uL (0.0-0.2); ABSOLUTE LYMPHOCYTES 1.6 thou/uL (0.8-5.3); ABSOLUTE MONOCYTES 0.8 thou/uL (0.0-1.2); ABSOLUTE NEUTROPHILS 8.3 thou/uL (1.6-8.1); BASOPHILS 1.2 %; EOSINOPHILS 0.4 %; HEMATOCRIT 48.3 % (42.0-52.0); HEMOGLOBIN 16.8 gm/dL (14.0-18.0); LYMPHOCYTES 14.9 %; MCH 31.6 pg (26.0-34.0); MCHC 34.8 g/dL (28.0-37.0); MCV 90.8 fL (80.0-100.0); MONOCYTES 7.1 %; MPV 6.7 fl. (7.2-11.1); NUCLEATED RBCS 0 /100WBC; PLATELET COUNT* 406 thou/uL (150-400); POLYS 76.4 %; RBC 5.32 mil/uL (4.50-6.00); RDW-CV 13.7 % (10.5-14.5); WBC 10.8 thou/uL (4.0-11.0)
[2019-05-02 09:40] LABS: CALCIUM 9.2 mg/dL (8.5-10.1); CREATININE 0.9 mg/dL (0.6-1.3); POTASSIUM 4.1 mmol/L (3.5-5.1)
[2019-05-02 09:44] LABS: ALBUMIN 3.9 g/dL (3.4-5.0); TOTAL BILIRUBIN 1.2 mg/dL (<0.1-1.0); TOTAL PROTEIN 7.2 g/dL (6.4-8.2)
[2019-05-02 11:47] VITALS: BP 158/102
[2019-05-02 12:24] LABS: URINE BILIRUBIN NEGATIVE (Negative); URINE BLOOD NEGATIVE (Negative); URINE CLARITY CLEAR; URINE COLOR YELLOW; URINE GLUCOSE-RANDOM NEGATIVE (Negative); URINE KETONES NEGATIVE (Negative); URINE LEUKOCYTES-REFLEX NEGATIVE (Negative); URINE NITRITE-REFLEX NEGATIVE (Negative); URINE PROTEIN TRACE (Negative); URINE SPECIFIC GRAVITY <= 1.005 (1.005-1.030)
--- NOTE | 2019-05-02 13:29 | NUR ---
39 Y/O MALE ADMITTED TO TELEMETRY ROOM 225 WITH AN ADMITTING DIAGNOSIS OF N/V, ABDOMINAL PAIN, PANCREATITIS. PT C/O /10 PAIN TO ABDOMEN. PT REPORTS UNABLE TO KEEP ANYTHING DOWN FOR SEVERAL DAYS. MEDICATIONS GIVEN PER EMAR. INITAL ASSESSMENT COMPLETED CHARTED. VSS. TRACING SR ON MONITOR. PT UP ADLIB WITH STEADY GAIT. ALERT & ORIENTED. REFER TO COMPUTER CHARTING FOR FURTHER DETAIL. HOURLY ROUNDING IN PLACE FOR PT SAFETY. CLWR.
[2019-05-02 13:57] LABS: AMP/METHAMP Negative (Negative); BARBITURATES Negative (Negative); BENZODIAZEPINES Negative (Negative); COCAINE Negative (Negative); METHADONE Negative (Negative); OPIATES Negative (Negative); PCP Negative (Negative); THC POSITIVE (Negative)
--- NOTE | 2019-05-02 16:55 | EKG ---
[place] [address] ELECTROCARDIOGRAM REPORT Name: KISHORE CHANEL Room: [address] ADM IN [facility]#: [id number] Admission: 05/02/19 Attend Phys: Cristiano Oleary MD Discharge: Date of : [birth year] Report #: [id number] THIS REPORT FOR: //name// [facility] ED Test Date: 2019-05-02 Test Time: 10:24:00 Pat Name: KISHORE CHANEL Department: Room: [facility] Gender: M Production Manager: : 1980 Requested By: Rodger Rodriguez Order Number: [id number] MD: Errol Jones Measurements Intervals [place] Rate: 63 P: 42 [place]: 119 QRS: -4 QRSD: 99 T: 29 QT: 453 QTc: 464 Interpretive Statements Sinus rhythm Borderline short [place] interval Compared to ECG 04/19/2019 05:28:14 No significant changes Electronically Signed On 05-02-2019 16:55:35 PINKING SEWING MACHINE OPERATOR by Errol Jones [email or web address] <ELECTRONICALLY SIGNED> By: Errol Jones MD, [facility] 05/02/19 2007 1024 1024 Errol Jones MD, [facility] /EPI
[2019-05-02 20:25] VITALS: BP 150/89
[2019-05-03 04:00] VITALS: BP 126/79
[2019-05-03 04:20] LABS: ABSOLUTE BASOPHILS 0.1 thou/uL (0.0-0.2); ABSOLUTE EOSINOPHILS 0.2 thou/uL (0.0-0.7); ABSOLUTE LYMPHOCYTES 1.9 thou/uL (0.8-5.3); ABSOLUTE MONOCYTES 0.5 thou/uL (0.0-1.2); ABSOLUTE NEUTROPHILS 4.2 thou/uL (1.6-8.1); BASOPHILS 1.2 %; EOSINOPHILS 2.6 %; HEMATOCRIT 42.1 % (42.0-52.0); LYMPHOCYTES 27.5 %; MCHC 33.9 g/dL (28.0-37.0); MCV 91.3 fL (80.0-100.0); MONOCYTES 7.3 %; NUCLEATED RBCS 0 /100WBC; POLYS 61.4 %; RBC 4.61 mil/uL (4.50-6.00); RDW-CV 14.1 % (10.5-14.5); WBC 6.9 thou/uL (4.0-11.0)
[2019-05-03 04:24] LABS: PROTIME 10.7 Seconds (9.20-11.50)
[2019-05-03 04:25] LABS: CALCIUM 8.5 mg/dL (8.5-10.1); CREATININE 0.8 mg/dL (0.6-1.3); POTASSIUM 3.6 mmol/L (3.5-5.1)
[2019-05-03 05:07] LABS: % SATURATION 47 % (20-39); IRON 133 ug/dL (50-175)
[2019-05-03 05:08] LABS: HEMOGLOBIN 14.3 gm/dL (14.0-18.0); PLATELET COUNT* 294 thou/uL (150-400)
--- NOTE | 2019-05-03 05:16 | NUR ---
patient's pain and nausea managed with medication per mar and relaxation. patient remains on clear liquid diet, tolerating well at this point. patient resting with eyes closed. call light within reach
[2019-05-03 08:30] VITALS: BP 130/84
--- NOTE | 2019-05-03 09:20 | NUR ---
asumming patient care report given patient seen at bedside, in bed resting and watching tv no rerquests
--- NOTE | 2019-05-03 11:25 | NUR ---
patient ms status and orders to transfer to rm 308 patient notified of transfer to rm 308 report given to marek moore patients belongings moved to 3W rm 308 patient to [facility] then to
--- NOTE | 2019-05-03 11:30 | NUR ---
MET WITH PT TO DISCUSS HOME SITUATION/DC PLANNING. PT LIVES ALONE, WORKS AND IS INDEPENDENT AND ACTIVE. HAD HOSPITAL STAY IN NOVEMBER AND WAS GIVEN ETOH REHAB RESOURCES AT THAT TIME. PT STATES HE HAS 'ALMOST' QUIT DRINKING AND IS MANAGING IT WITHOUT DIFFICUTLY. PLANS TO RETURN HOME AT DC. STATES BROTHER IS DPOA. PT PLANS TO RETURN HOME AT DC. IS LOOKING FOR NEW PCP, GAVE LIST OF ONES NEAR [facility]. CM TO FOLLOW
[2019-05-03 16:00] VITALS: BP 167/74
--- NOTE | 2019-05-03 16:59 | NUR ---
PT RESTING IN BED THROUGHOUT SHIFT. UP IN ROOM WITH STEADY GAIT. IVF INFUSING. TOLERATING CLEAR LIQUID DIET
[2019-05-03 18:06] LABS: IgA 163 mg/dL (90-386); IgG 738 mg/dL (700-1600); IgM 64 mg/dL (20-172)
[2019-05-03 19:50] VITALS: BP 128/79
[2019-05-04 03:51] LABS: ABSOLUTE BASOPHILS 0.1 thou/uL (0.0-0.2); ABSOLUTE EOSINOPHILS 0.3 thou/uL (0.0-0.7); ABSOLUTE LYMPHOCYTES 1.9 thou/uL (0.8-5.3); ABSOLUTE MONOCYTES 0.5 thou/uL (0.0-1.2); ABSOLUTE NEUTROPHILS 2.7 thou/uL (1.6-8.1); BASOPHILS 1.1 %; EOSINOPHILS 5.4 %; HEMATOCRIT 40.5 % (42.0-52.0); HEMOGLOBIN 13.6 gm/dL (14.0-18.0); LYMPHOCYTES 35.3 %; MCH 31.2 pg (26.0-34.0); MCHC 33.7 g/dL (28.0-37.0); MCV 92.5 fL (80.0-100.0); MONOCYTES 8.6 %; NUCLEATED RBCS 0 /100WBC; PLATELET COUNT* 263 thou/uL (150-400); POLYS 49.6 %; RBC 4.38 mil/uL (4.50-6.00); RDW-CV 14.2 % (10.5-14.5); WBC 5.4 thou/uL (4.0-11.0)
[2019-05-04 04:10] VITALS: BP 128/79
[2019-05-04 04:15] LABS: ALBUMIN 2.9 g/dL (3.4-5.0); CALCIUM 8.6 mg/dL (8.5-10.1); CREATININE 0.7 mg/dL (0.6-1.3); POTASSIUM 4.3 mmol/L (3.5-5.1); TOTAL BILIRUBIN 0.7 mg/dL (<0.1-1.0); TOTAL PROTEIN 5.7 g/dL (6.4-8.2)
--- NOTE | 2019-05-04 06:09 | NUR ---
PT ALERT AND ORIENTED. VSS ON RA. UP AD MARTIN. PT SLEPT WELL THIS SHIFT. NPO AFTER MIDNIGHT FOR EGD THIS AM. LW IV WITH NS @ 100. PRE OP CHECKLIST INITIATED. PAIN MED GIVEN X1 THIS SHIFT. CALL LIGHT WITHIN REACH. HOURLY ROUNDINGS MADE. WILL CONTINUE TO MONITOR.
[2019-05-04 08:30] VITALS: BP 125/79
[2019-05-04 13:10] LABS: ANA INTERPRETATION Negative (Negative)
[2019-05-04 17:03] VITALS: BP 125/79
--- NOTE | 2019-05-04 17:55 | NUR ---
PT A&OX4 VSS. PT UP AD MARTIN, GAIT STEADY. PT NS DC'D PRIOR TO LEAVING FOR PROCEDURE. FOR EGD. PT DOWN FOR SCOPE APPROX 1330. PT TOLERATED PROCEDURE AND RETURNED TO UNIT APPROX 1530 PT ABLE TO RESUME HEART HEALTHY DIET. UPON RETURN PT ATE BOX LUNCH WITH SPRITE AND TOLERATED WELL, NO C/O N/V. PT CLEARED BY DR CARVAJAL TO DC THIS EVENING. LFA IV DC'D, NO REDNESS/SWELLING NOTED AT SITE. COBAN AND COTTON APPLIED. PT STATES UNDERSTANDING OF DC INSTRUCTIONS PROVIDED AND FOLLOW-UP INSTRUCTIONS. PT LEAVES UNIT IN WC WITH STAFF.
[2019-05-05 03:06] LABS: HEPATITIS B SURFACE AG Negative (Negative)
--- NOTE | 2019-05-05 22:46 | CON ---
[address] [address] CONSULTATION Name: KISHORE CHANEL Room: [address] IN .R.#: [id number] Admission: 05/02/19 Attend Phys: Cristiano Oleary MD Discharge: 05/04/19 Date of : [birth year] Report #: [id number] THIS REPORT FOR: //name// CC: Cristiano Oleary [facility] physician/PCP DICTATED BY: Stephenie Croft [facility] DATE OF SERVICE: 05/03/2019 The patient does not currently have a primary care physician. Please note at the time of this dictation, the patient was seen and physically examined by myself. REASON FOR CONSULTATION: Nausea, vomiting and epigastric pain. HISTORY OF PRESENT ILLNESS: This is a 39-year-old male who presented to the Emergency Room when he has not been able to keep anything down for the last 4 days. He has had ongoing nausea, vomiting and epigastric pain. He denies any bright red blood or coffee ground emesis. He does admit that he did have a drink approximately 2 days ago. He has cut down significantly on his drinking over the last 3-4 months, whereas before he was drinking about a fifth of whiskey daily; now it is just an occasional drink. He denies any constipation or diarrhea. He has not noticed any bright red blood or any black stooling. He states over the last 4 weeks, he ran out of his prescription of Prilosec and he was taking 40 mg daily; when his prescription ran out, he started taking 20 mg daily. The patient did undergo an EGD in September of this year that showed a medium size hiatal hernia, irregular Z line with some esophagitis that was negative for Sandra's and the rest of his upper scope was negative and he was to be maintained on the Prilosec or omeprazole 40 mg daily. The patient has never had a colonoscopy. ALLERGIES: PENICILLIN AND CODEINE. MEDICATIONS FROM HOME: Include the omeprazole, venlafaxine and vitamins. PAST MEDICAL HISTORY: Generalized anxiety, acid reflux, high cholesterol, history of pancreatitis, hypertension. He does have a history of Clostridium difficile back in November of this year. PAST SURGICAL HISTORY: Vasectomy and jaw surgery. FAMILY HISTORY: Negative for [place] [address] CONSULTATION Name: CHANELKISHORE Room: [address]#: [id number] Admission: 05/02/19 Attend Phys: Cristiano Oleary MD Discharge: 05/04/19 Date of : 80 Report #: [id number] SOCIAL HISTORY: He does smoke cigars on a daily basis, alcohol use a fifth of whiskey daily, quit that about 3 months ago and now it is just an occasional drink. He does smoke marijuana off and on as well. REVIEW OF SYSTEMS: Twelve-point review of systems is essentially negative except what is mentioned in the HPI. PHYSICAL EXAMINATION: VITAL SIGNS: Temperature 36.3, pulse 61, respirations 16, blood pressure 126/79. HEART: Regular rate and rhythm. LUNGS: Clear. ABDOMEN: Soft, positive bowel sounds in all 4 quadrants with some epigastric tenderness noted to palpation. LABORATORY DATA: Hemoglobin 14.3, white count is 9.9, platelets 294. PT 10.7, INR is 1. He was positive for THC. His ferritin was 626. GFR is 108. Total bilirubin 1.2, alkaline phosphatase 92, ALT 180, AST is 427. Lipase was 194. CT shows a 12 mm lymph node seen by the distal stomach and duodenum just anterior to the head of the pancreas, otherwise negative. IMPRESSION: 1. Nausea and vomiting, improved. 2. Abdominal pain, epigastric. 3. Elevated liver function tests. 4. History of alcohol abuse and THC. PLAN: 1. Ultrasound of the abdomen. 2. EGD tomorrow with Dr. Marte. 3. Labs in the a.m. CBC and CMP. Pending labs: Acute hepatitis panel and autoimmune labs. 4. Further recommendations to be made after the above have been noted. Thank you for allowing us to participate in this patient's care. Please do not hesitate to call with any questions in regard to this consult. <ELECTRONICALLY SIGNED> By: Bryant Marte DO 05/05/19 2246 1040 [id number] Marte DO /nt
== END 2019-05-04 17:45 | disposition home or self-care (01) | DRG 391 ==
LOC: M.ERS 09:04 → M.2W 10:55 → M.TBA-ER 10:55 → M.3W 10:55 → M.2W 11:56 → M.3W 05-03 12:27
PROVIDERS: Family Medicine; Internal Medicine Gastroenterology; Nurse Practitioner Adult Health; ADMIT Internal Medicine
PROC: 0DJ08ZZ Inspection of Upper Intestinal Tract, Via Natural or Artificial Opening Endoscopic (ICD-10-PCS; principal; 2019-05-04)
DX: K29.20 Alcoholic gastritis without bleeding (principal); K85.20 Alcohol induced acute pancreatitis without necrosis or infection; F41.1 Generalized anxiety disorder; E78.00 Pure hypercholesterolemia, unspecified; K21.9 Gastro-esophageal reflux disease without esophagitis; I10 Essential (primary) hypertension; K29.80 Duodenitis without bleeding; R74.0 Nonspecific elevation of levels of transaminase and lactic acid dehydrogenase [LDH]; F10.10 Alcohol abuse, uncomplicated; K44.9 Diaphragmatic hernia without obstruction or gangrene; Z88.0 Allergy status to penicillin; Z88.8 Allergy status to other drugs, medicaments and biological substances; Z79.899 Other long term (current) drug therapy; Z98.52 Vasectomy status; Z81.1 Family history of alcohol abuse and dependence; Z23 Encounter for immunization

== ENCOUNTER 2019-10-16 04:18 | Inpatient (IN) | payer OTHER ==
[~2019-10-16] VITALS: Ht 170.2 cm; Wt 58.5 kg
[2019-10-16] VITALS (7 sets, daily range): BP systolic 115–151; BP diastolic 78–104
[2019-10-16 04:39] LABS: WBC 16.5 thou/uL (4.0-11.0)
[2019-10-16 04:40] LABS: ABSOLUTE BASOPHILS 0.1 thou/uL (0.0-0.2); ABSOLUTE LYMPHOCYTES 1.9 thou/uL (0.8-5.3); ABSOLUTE MONOCYTES 1.2 thou/uL (0.0-1.2); ABSOLUTE NEUTROPHILS 13.3 thou/uL (1.6-8.1); BASOPHILS 0.7 %; EOSINOPHILS 0.1 %; HEMATOCRIT 45.5 % (42.0-52.0); HEMOGLOBIN 15.6 gm/dL (14.0-18.0); LYMPHOCYTES 11.6 %; MCH 31.6 pg (26.0-34.0); MCHC 34.2 g/dL (28.0-37.0); MCV 92.3 fL (80.0-100.0); MONOCYTES 7.3 %; MPV 6.5 fl. (7.2-11.1); NUCLEATED RBCS 0 /100WBC; PLATELET COUNT* 613 thou/uL (150-400); POLYS 80.3 %; RBC 4.93 mil/uL (4.50-6.00); RDW-CV 14.9 % (10.5-14.5)
[2019-10-16 04:54] LABS: CALCIUM 9.7 mg/dL (8.5-10.1); CREATININE 1.4 mg/dL (0.6-1.3); POTASSIUM 3.5 mmol/L (3.5-5.1)
[2019-10-16 05:05] LABS: ALBUMIN 4.2 g/dL (3.4-5.0); TOTAL BILIRUBIN 1.1 mg/dL (<0.1-1.0); TOTAL PROTEIN 8.2 g/dL (6.4-8.2)
--- NOTE | 2019-10-16 07:11 | NUR ---
RECEIVED PT FROM ER AT 0610. GET SITUATED TO ROOM. TELE IN PLACED. PT COMPLAINS OF ABDOMINAL PAIN RATE AT 8. GET AN ORDER FOR FENTANYL. GIVEN ORDERED. IVF INFUSING ORDER. ADMISSION ASSESSMENT DONE. VSS, WILL CONTINUE TO MONITOR.
[2019-10-16 12:31] LABS: CALCIUM 8.6 mg/dL (8.5-10.1); CREATININE 0.9 mg/dL (0.6-1.3); MAGNESIUM 1.7 mg/dL (1.8-2.4); POTASSIUM 3.2 mmol/L (3.5-5.1)
[2019-10-16 13:29] LABS: ICTOTEST (BILI CONFIRMATORY) Negative (Negative); URINE BILIRUBIN 1+ (Negative); URINE BLOOD NEGATIVE (Negative); URINE CLARITY CLEAR; URINE COLOR DARK YELLOW; URINE GLUCOSE-RANDOM NEGATIVE (Negative); URINE KETONES 1+ (Negative); URINE LEUKOCYTES-REFLEX NEGATIVE (Negative); URINE NITRITE-REFLEX NEGATIVE (Negative); URINE PROTEIN 1+ (Negative); URINE UROBILINOGEN 0.2 E.U./dl (0.2-1.0)
--- NOTE | 2019-10-16 14:13 | EKG ---
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: : 1980 Requested By: Rodger Rodriguez Order Number: [id number] MD: Errol Jones Measurements Intervals [place] Rate: 110 P: 78 [place]: 124 QRS: -13 QRSD: 93 T: 70 QT: 340 QTc: 461 Interpretive Statements Sinus tachycardia Probable left atrial enlargement Compared to ECG 05/02/2019 10:24:00 Sinus rhythm no longer present Electronically Signed On 10-16-2019 14:11:33 CDT by Errol Jones [email or web address] <ELECTRONICALLY SIGNED> By: Errol Jones MD, [facility] 10/16/19 1411 0440 0440 Errol Jones MD, [facility] /EPI
[2019-10-17 00:26] VITALS: BP 141/88
[2019-10-17 04:32] VITALS: BP 135/86
[2019-10-17 05:08] LABS: ALBUMIN 2.6 g/dL (3.4-5.0); CALCIUM 7.7 mg/dL (8.5-10.1); CREATININE 0.8 mg/dL (0.6-1.3); POTASSIUM 3.8 mmol/L (3.5-5.1); TOTAL BILIRUBIN 0.7 mg/dL (<0.1-1.0); TOTAL PROTEIN 5.4 g/dL (6.4-8.2)
--- NOTE | 2019-10-17 06:39 | NUR ---
ASSUMED PT CARE AT 1915. NURSING ASSESSMENT COMPLETED AT START OF SHIFT. PT SR ON CARDIAC RHYTHM. HOURLY ROUNDING COMPLETED. PT C/O ABD PAIN THIS SHIFT. PRN PAIN MEDICATION ADMINISTERED. SEE EMAR FOR DOCUMENTATION. CALL LIGHT WITHIN REACH.
[2019-10-17 08:00] VITALS: BP 118/75
[2019-10-17 12:00] VITALS: BP 117/88
--- NOTE | 2019-10-17 14:53 | NUR ---
Pt is A&O. Resides at home alone. Independent. No DME. No hx of HH or SNF. Hx of etoh abuse, has resources. Supportive family. Goal is home at [place]. Following.
[2019-10-17 15:39] VITALS: BP 115/70
--- NOTE | 2019-10-17 18:17 | NUR ---
ASSUMED PT CARE REPORT RECEIVED FROM NURSE PT IS AOX4, ON RA. TRACING SINUS RYTHM ON MEDICAL RECORD CONSULTANT. IV FLUID INFUSING AT 200 CC PER HOUR. NPO STATUS. PT COMPLAINS OF PAIN IN ABDOMEN. FENTANYL GIVEN. CALL [facility] AT REACH. NO N/V
[2019-10-17 20:00] VITALS: BP 136/86
[2019-10-18 00:22] VITALS: BP 123/77
[2019-10-18 04:27] VITALS: BP 113/74
--- NOTE | 2019-10-18 06:02 | NUR ---
ASSUMED PT CARE AT 1915. NURSING ASSESSMENT COMPLETED AT START OF SHIFT. URGENT CARE NURSE PRACTITIONER IN PLACE, TRACING SA/SR. HOURLY ROUNDING COMPLETED THIS SHIFT. IV FLUIDS INFUSING. PRN PAIN MEDICATION ADMINISTERED X1 THIS SHIFT. PT STATED EAGER TO START BEING ABLE TO EAT/ADVANCE DIET. HOURLY ROUNDING COMPLETED. CALL LIGHT WITHIN REACH.
[2019-10-18 07:36] VITALS: BP 119/62
--- NOTE | 2019-10-18 10:58 | NUR ---
ASSUMED PT CARE. REPORT RECEIVED FROM NURSE PT IS AOX4. ON RA. TRACING SINUS RYTHM ON MECHANICAL SYSTEMS DESIGNER. NPO . DENIES PAIN. IV LFUID INFUSING ORDERED. PT DIET CHANGED TO CLEAR LIQUID FOR LUNCH TIME. WILL MONITOR TOLORANCE.
[2019-10-18 11:57] VITALS: BP 129/74
--- NOTE | 2019-10-18 13:55 | NUR ---
Per , diet advanced, not medically stable to dc today.
[2019-10-18 15:57] VITALS: BP 114/73
--- NOTE | 2019-10-18 17:40 | NUR ---
PO PAIN MEDICINE GIVEN. PT DID NOT REQUIRE IV MEDICINE FOR PAIN CONTROL TODAY
--- NOTE | 2019-10-18 18:58 | NUR ---
PT STATES RELIEF FROM PAIN AFTER TAKING TYLENOL
[2019-10-18 20:00] VITALS: BP 131/84
[2019-10-19] VITALS: BP 116/67
[2019-10-19 04:00] VITALS: BP 109/54
--- NOTE | 2019-10-19 04:59 | NUR ---
ASSUMED PT CARE AT 1900. NURSING ASSESSMENT COMPLETED AT START OF SHIFT. PT VOICED NO CONCERNS THIS SHIFT. SR ON BUSINESS RISK CONSULTANT. TOLERATED CLEAR LIQUID DIET THIS SHIFT. EAGER TO ADVANCE DIET. HOURLY ROUNDING COMPLETED. CALL LIGHT WITHIN REACH. IVF INFUSING.
[2019-10-19 07:39] VITALS: BP 130/83
[2019-10-19] MEDS ORDERED: NORCO 10-325 T1 EACH PO (12:28)
[2019-10-19] MEDS ORDERED: ONDANSETRON HCL4 M2 PO (12:33)
[2019-10-19 12:40] VITALS: BP 139/100
[2019-10-19] MEDS ORDERED: PNV 29-1 TABLE1 EACH PO (15:03)
[2019-10-19 15:04] VITALS: BP 139/100
--- NOTE | 2019-10-19 16:19 | NUR ---
ORDER RECEIVED TO DISCHARGFE PATIENT HOME TO SELF CARE. MED REC, MEDICATION EDUCATION, STROKE EDUCATION, AND NEED FOR FOLLOW UP WITH A PRIMARY CARE PROVIDER COVERED ANBD STATED UNDERSTOD BY PATIENT. IV AND TELEMETRY PACK REMOVED. ARLEEN TRANSPORTED TO THE ER EXIT AND HE AMBULATED TO HIS CAR WITH A STEADY GAIT ANF UNASSISTED. HOURLY ROUNDING COMPLETD FOR ARLEEN SAFETY. DC TIME OF 16:00.
== END 2019-10-19 16:11 | disposition home or self-care (01) | DRG 440 ==
LOC: M.ERS 04:18 → M.TBA-ER 05:51 → M.2W 05:51
PROVIDERS: Family Medicine; ADMIT Internal Medicine
DX: K85.20 Alcohol induced acute pancreatitis without necrosis or infection (principal); F41.1 Generalized anxiety disorder; E78.00 Pure hypercholesterolemia, unspecified; K21.9 Gastro-esophageal reflux disease without esophagitis; F10.20 Alcohol dependence, uncomplicated; I10 Essential (primary) hypertension; F12.90 Cannabis use, unspecified, uncomplicated; F17.210 Nicotine dependence, cigarettes, uncomplicated; Z98.52 Vasectomy status; Z88.6 Allergy status to analgesic agent; Z88.0 Allergy status to penicillin

== ENCOUNTER 2020-07-01 16:44 | Emergency (ER) | payer OTHER ==
[~2020-07-01] VITALS: Ht 170.2 cm; Wt 63.5 kg
[~2020-07-01 16:44] MED LIST changes: +NORCO 10-325 T1 EACH PO; +ONDANSETRON HCL4 M2 PO; +PNV 29-1 TABLE1 EACH PO
[2020-07-01 17:18] LABS: ABSOLUTE BASOPHILS 0.1 thou/uL (0.0-0.2); ABSOLUTE EOSINOPHILS 0.1 thou/uL (0.0-0.7); ABSOLUTE LYMPHOCYTES 2.9 thou/uL (0.8-5.3); ABSOLUTE NEUTROPHILS 5.2 thou/uL (1.6-8.1); BASOPHILS 1.2 %; EOSINOPHILS 0.6 %; HEMATOCRIT 47.4 % (42.0-52.0); HEMOGLOBIN 16.2 gm/dL (14.0-18.0); LYMPHOCYTES 31.8 %; MCH 30.8 pg (26.0-34.0); MCHC 34.1 g/dL (28.0-37.0); MCV 90.3 fL (80.0-100.0); MONOCYTES 10.6 %; MPV 6.5 fl. (7.2-11.1); NUCLEATED RBCS 0 /100WBC; PLATELET COUNT* 378 thou/uL (150-400); POLYS 55.8 %; RBC 5.25 mil/uL (4.50-6.00); RDW-CV 14.6 % (10.5-14.5); WBC 9.3 thou/uL (4.0-11.0)
[2020-07-01 17:20] LABS: CALCIUM 9.2 mg/dL (8.5-10.1); CREATININE 0.9 mg/dL (0.6-1.3); POTASSIUM 3.6 mmol/L (3.5-5.1)
[2020-07-01 17:24] LABS: ALBUMIN 4.3 g/dL (3.4-5.0); TOTAL BILIRUBIN 0.8 mg/dL (<0.1-1.0); TOTAL PROTEIN 7.7 g/dL (6.4-8.2)
[2020-07-01 19:03] LABS: URINE BLOOD NEGATIVE (Negative); URINE CLARITY CLEAR; URINE COLOR YELLOW; URINE GLUCOSE-RANDOM NEGATIVE (Negative); URINE KETONES 1+ (Negative); URINE LEUKOCYTES-REFLEX NEGATIVE (Negative); URINE NITRITE-REFLEX NEGATIVE (Negative); URINE PROTEIN 1+ (Negative); URINE SPECIFIC GRAVITY 1.025 (1.005-1.030); URINE UROBILINOGEN 0.2 E.U./dl (0.2-1.0)
[2020-07-01 19:07] LABS: ICTOTEST (BILI CONFIRMATORY) Negative (Negative); URINE BILIRUBIN 1+ (Negative)
[2020-07-01 19:11] LABS: AMP/METHAMP Negative (Negative); BARBITURATES Negative (Negative); BENZODIAZEPINES Negative (Negative); COCAINE Negative (Negative); METHADONE Negative (Negative); OPIATES Negative (Negative); PCP Negative (Negative); THC POSITIVE (Negative)
[2020-07-01] MEDS ORDERED: REGLAN 10 MG TA10 MG PO (19:31)
[2020-07-01 19:44] VITALS: BP 138/87
--- NOTE | 2020-07-03 14:04 | EKG ---
[place] [address] ELECTROCARDIOGRAM REPORT Name: KISHORE CHANEL Room: [facility]#: [id number] Admission: 07/01/20 Attend Phys: Discharge: 07/01/20 Date of : 80 Date of Service: 07/01/20 1744 Report #: [id number] THIS REPORT FOR: //name// [facility] ED Test Date: 2020-07-01 Test Time: 17:44:11 Pat Name: KISHORE CHANEL Department: Room: Gender: Silver Designer: RODY : 1980 Requested By: Sandie Moss Order Number: [id number] MD: Kareem Rodriguez Measurements Intervals [place] Rate: 77 P: 39 [place]: 122 QRS: 20 QRSD: 100 T: 56 QT: 398 QTc: 451 Interpretive Statements Sinus rhythm Anteroseptal infarct, age indeterminate possible Baseline wander in lead(s) V4 Compared to ECG 10/16/2019 04:40:49 Myocardial infarct finding now possible Sinus tachycardia no longer present Electronically Signed On 07-03-2020 14:04:31 MELON PACKER by Kareem Rodriguez [email or web address] <ELECTRONICALLY SIGNED> By: Kareem Rodriguez MD, [facility] 07/03/20 1404 1744 1744 Kareem Rodriguez MD, [facility] /EPI
== END 2020-07-01 19:44 | disposition home or self-care (01) ==
LOC: M.ERS 16:44
PROVIDERS: Nurse Practitioner Family
DX: E86.0 Dehydration (principal); I10 Essential (primary) hypertension; E78.00 Pure hypercholesterolemia, unspecified; K21.9 Gastro-esophageal reflux disease without esophagitis; Z88.0 Allergy status to penicillin; Z88.5 Allergy status to narcotic agent; Z79.899 Other long term (current) drug therapy

== ENCOUNTER 2020-09-03 10:55 | Inpatient (IN) | payer OTHER ==
[~2020-09-03] VITALS: Ht 170.2 cm; Wt 68.5 kg
[~2020-09-03 10:55] MED LIST changes: +REGLAN 10 MG TA10 MG PO
[2020-09-03 10:58] VITALS: BP 152/91
[2020-09-03 11:31] LABS: ABSOLUTE BASOPHILS 0.1 thou/uL (0.0-0.2); ABSOLUTE MONOCYTES 0.7 thou/uL (0.0-1.2); ABSOLUTE NEUTROPHILS 6.7 thou/uL (1.6-8.1); BASOPHILS 0.5 %; EOSINOPHILS 0.3 %; HEMATOCRIT 46.8 % (42.0-52.0); HEMOGLOBIN 15.5 gm/dL (14.0-18.0); LYMPHOCYTES 21.2 %; MONOCYTES 7.5 %; MPV 7.1 fl. (7.2-11.1); NUCLEATED RBCS 0 /100WBC; PLATELET COUNT* 125 thou/uL (150-400); POLYS 70.5 %; RBC 4.98 mil/uL (4.50-6.00); RDW-CV 14.4 % (10.5-14.5); WBC 9.5 thou/uL (4.0-11.0)
[2020-09-03 11:41] LABS: ANION GAP 18 mmol/L (7-16); BUN 12 mg/dL (7-18); CALCIUM 8.4 mg/dL (8.5-10.1); CHLORIDE 102 mmol/L (98-107); CO2 17 mmol/L (21-32); CREATININE 0.7 mg/dL (0.6-1.3); GLUCOSE 176 mg/dL (70-99); POTASSIUM 3.2 mmol/L (3.5-5.1); SODIUM 137 mmol/L (136-145)
[2020-09-03 11:44] LABS: APTT 23.7 Seconds (25.0-31.3); INR 1.2; PROTIME 12.3 Seconds (9.20-11.50)
[2020-09-03 11:55] LABS: ALBUMIN 3.7 g/dL (3.4-5.0); ALKALINE PHOSPHATASE 74 U/L (46-116); CK-MB MASS < 0.5 ng/mL (<0.5-3.6); LIPASE 390 U/L (73-393); MAGNESIUM 1.6 mg/dL (1.8-2.4); NT-PRO BRAIN NAT PEPTIDE 34 pg/mL (<300); SGPT 25 U/L (30-65); TOTAL BILIRUBIN 0.9 mg/dL (<0.1-1.0); TOTAL PROTEIN 7.6 g/dL (6.4-8.2)
[2020-09-03 12:11] LABS: SGOT 25 U/L (15-37)
--- NOTE | 2020-09-03 15:06 | EKG ---
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
[2020-09-03 15:08] VITALS: BP 132/84
[2020-09-03 15:35] VITALS: BP 132/85
[2020-09-03] MEDS ORDERED: PRENATAL PO (19:22)
[2020-09-03] MEDS ORDERED: FOLIC ACID1 MG PO (19:23)
[2020-09-03] MEDS ORDERED: OMEPRAZOLE40 MG PO (19:23)
[2020-09-03] MEDS ORDERED: VISTARIL 25 MG25 M1 PO (19:25)
[2020-09-03] MEDS ORDERED: CRESTOR20 MG PO (19:33)
[2020-09-03] MEDS ORDERED: EFFEXOR XR37.5 MG PO (19:34)
[2020-09-04 04:00] VITALS: BP 129/93
[2020-09-04 04:26] LABS: CREATININE 0.7 mg/dL (0.6-1.3); POTASSIUM 3.9 mmol/L (3.5-5.1)
[2020-09-04 04:27] LABS: HEMATOCRIT 43.7 % (42.0-52.0); HEMOGLOBIN 14.6 gm/dL (14.0-18.0); MCH 30.8 pg (26.0-34.0); MCHC 33.4 g/dL (28.0-37.0); MCV 92.4 fL (80.0-100.0); MPV 6.9 fl. (7.2-11.1); RBC 4.72 mil/uL (4.50-6.00); RDW-CV 14.5 % (10.5-14.5); WBC 14.9 thou/uL (4.0-11.0)
[2020-09-04 07:37] VITALS: BP 127/88
[2020-09-04 11:55] VITALS: BP 124/83
[2020-09-04 16:31] VITALS: BP 124/83
[2020-09-04 19:45] VITALS: BP 116/74
[2020-09-05] VITALS: BP 111/71
[2020-09-05 04:00] VITALS: BP 103/71
[2020-09-05 04:17] LABS: MCHC 33.2 g/dL (28.0-37.0); MCV 93.3 fL (80.0-100.0); MPV 6.7 fl. (7.2-11.1); RBC 4.07 mil/uL (4.50-6.00); RDW-CV 14.6 % (10.5-14.5); WBC 10.5 thou/uL (4.0-11.0)
[2020-09-05 04:18] LABS: HEMOGLOBIN 12.6 gm/dL (14.0-18.0)
[2020-09-05 04:30] LABS: CALCIUM 8.2 mg/dL (8.5-10.1); CREATININE 0.7 mg/dL (0.6-1.3); POTASSIUM 4.6 mmol/L (3.5-5.1)
[2020-09-05 07:40] VITALS: BP 118/79
[2020-09-05] MEDS ORDERED: HYDROCODON-ACE1 EAC7 PO (09:41)
--- NOTE | 2020-09-05 09:45 | EKG ---
[place] [address] ELECTROCARDIOGRAM REPORT Name: CHANELKISHORE Room: [address] DIS IN ..#: [id number] Admission: 09/03/20 Attend Phys: Nasir Tejeda Discharge: 09/05/20 Date of : 80 Date of Service: 09/04/20 1658 Report #: [id number] THIS REPORT FOR: //name// [facility] Test Date: 2020-09-04 Test Time: 16:58:50 Pat Name: KISHORE CHANEL Department: Room: [address] Gender: M Maintenance Assistant: ISMAEL : 1980 Requested By: Dolores Wilkerson Order Number: [id number] Anusha MD: Errol Jones Measurements Intervals [place] Rate: 109 P: 75 [place]: 117 QRS: -3 QRSD: 90 T: 73 QT: 326 QTc: 440 Interpretive Statements Sinus tachycardia RSR' in V1 or V2, right VCD or RVH Compared to ECG 09/03/2020 11:10:36 Sinus arrhythmia no longer present Electronically Signed On 09-05-2020 9:45:08 CDT by Errol Jones [email or web address] <ELECTRONICALLY SIGNED> By: Errol Jones MD, FACC 09/05/20 0945 1658 1658 Errol Jones MD, FAC /EPI
[2020-09-05 10:51] VITALS: BP 118/79
[2020-09-05 11:40] VITALS: BP 103/67
== END 2020-09-05 14:35 | disposition home or self-care (01) | DRG 440 ==
LOC: M.ERS 10:55 → M.2W 13:10 → M.TBA-ER 13:10 → M.2W 13:10
PROVIDERS: Family Medicine; ADMIT Internal Medicine; ATTEND Internal Medicine
DX: K85.20 Alcohol induced acute pancreatitis without necrosis or infection (principal); K21.9 Gastro-esophageal reflux disease without esophagitis; E78.5 Hyperlipidemia, unspecified; F17.210 Nicotine dependence, cigarettes, uncomplicated; E87.6 Hypokalemia; F10.21 Alcohol dependence, in remission; E83.42 Hypomagnesemia; F41.9 Anxiety disorder, unspecified; Z20.822 Contact with and (suspected) exposure to COVID-19; Z88.5 Allergy status to narcotic agent; Z88.0 Allergy status to penicillin

== ENCOUNTER 2020-09-25 10:14 | Emergency (ER) | payer OTHER ==
[~2020-09-25] VITALS: Ht 175.3 cm; Wt 59.0 kg
[~2020-09-25 10:14] MED LIST changes: +CRESTOR20 MG PO; +FOLIC ACID1 MG PO; +HYDROCODON-ACE1 EAC7 PO; +VISTARIL 25 MG25 M1 PO
[2020-09-25 10:49] LABS: ABSOLUTE BASOPHILS 0.2 thou/uL (0.0-0.2); ABSOLUTE EOSINOPHILS 0.3 thou/uL (0.0-0.7); ABSOLUTE LYMPHOCYTES 2.9 thou/uL (0.8-5.3); ABSOLUTE NEUTROPHILS 9.8 thou/uL (1.6-8.1); BASOPHILS 1.1 %; EOSINOPHILS 2.2 %; HEMATOCRIT 41.8 % (42.0-52.0); HEMOGLOBIN 13.7 gm/dL (14.0-18.0); LYMPHOCYTES 20.2 %; MCH 30.1 pg (26.0-34.0); MCHC 32.8 g/dL (28.0-37.0); MCV 91.9 fL (80.0-100.0); MONOCYTES 6.8 %; MPV 6.5 fl. (7.2-11.1); NUCLEATED RBCS 0 /100WBC; PLATELET COUNT* 647 thou/uL (150-400); POLYS 69.7 %; RBC 4.54 mil/uL (4.50-6.00); RDW-CV 14.8 % (10.5-14.5); WBC 14.1 thou/uL (4.0-11.0)
[2020-09-25 10:53] LABS: CALCIUM 9.6 mg/dL (8.5-10.1); CREATININE 0.8 mg/dL (0.6-1.3); POTASSIUM 4.8 mmol/L (3.5-5.1)
[2020-09-25 10:58] LABS: TOTAL BILIRUBIN 0.8 mg/dL (<0.1-1.0); TOTAL PROTEIN 8.6 g/dL (6.4-8.2)
--- NOTE | 2020-09-25 14:02 | EKG ---
[place] [address] ELECTROCARDIOGRAM REPORT Name: KISHORE CHANEL Room: [facility]#: [id number] Admission: 09/25/20 Attend Phys: Discharge: Date of : 80 Date of Service: 09/25/20 1018 Report #: [id number] THIS REPORT FOR: //name// [facility] ED Test Date: 2020-09-25 Test Time: 10:18:31 Pat Name: KISHORE CHANEL Department: Room: Gender: Color Control Supervisor: PA : 1980 Requested By: Augustus Lemos Order Number: [id number] MD: Errol Jones Measurements Intervals [place] Rate: 111 P: 80 [place]: 142 QRS: 2 QRSD: 78 T: 59 QT: 327 QTc: 445 Interpretive Statements Sinus tachycardia Baseline wander in lead(s) V6 Compared to ECG 09/04/2020 16:58:50 Right ventricular hypertrophy no longer present Electronically Signed On 09-25-2020 14:02:38 CDT by Errol Jones [email or web address] <ELECTRONICALLY SIGNED> By: Errol Jones MD, [facility] 09/25/20 1402 1018 1018 Errol Jones MD, [facility] /EPI
[2020-09-25 14:08] VITALS: BP 113/75
== END 2020-09-25 14:09 | disposition home or self-care (01) ==
LOC: M.ERS 10:14
PROVIDERS: Emergency Medicine
DX: K85.90 Acute pancreatitis without necrosis or infection, unspecified (principal); K86.3 Pseudocyst of pancreas; F17.210 Nicotine dependence, cigarettes, uncomplicated; Z79.899 Other long term (current) drug therapy; Z88.0 Allergy status to penicillin; Z88.5 Allergy status to narcotic agent

== ENCOUNTER 2021-01-27 04:08 | Inpatient (IN) | payer OTHER ==
[~2021-01-27] VITALS: Ht 170.2 cm; Wt 64.0 kg
--- NOTE | ~2021-01-27 | CON ---
[address] [address] CONSULTATION Name: KISHORE CHANEL Room: [address] IN .R.#: [id number] Admission: 01/27/21 Attend Phys: Flynn Sarmiento Discharge: Date of : 80 Report #: [id number] THIS REPORT FOR: cc: Tanmay Oscar,Norman Miranda MD ~ cc: Tanmay Oscar DO DATE OF CONSULTATION: 01/28/2021 Please note at the time of this dictation, the patient was seen and physically examined by myself. HISTORY OF PRESENT ILLNESS: This is a 40-year-old male who presented to the Emergency Room with persistent and worsening of his abdominal pain over the last 3 days. The patient states that he has been having this abdominal pain that has been ongoing and they have not been able to figure out what is going on. He states he underwent a colonoscopy at [facility] by Dr. Knott on 01/15 for this abdominal pain that he described on the left side and up into the left upper quadrant, which he states was essentially negative. 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 Otherwise, no other findings to explain his pain. He states his bowels normally move on a regular basis. He states his pain has been ongoing and has worsened where he could not take the pain any longer. He did have a little bit of some nausea, but no vomiting. The patient has a longstanding history of alcohol abuse heavy. Last time we saw him was back in 04/2019. He underwent an EGD at that time that showed a medium hiatal hernia, irregular Z line, but was negative for Sandra's. He has also had a history of C. diff in the past as well. The patient had previously drank a fifth of hard liquor before when he was last seen, he had cut down dramatically. He now tells me since 07/2020, he has abstained from alcohol altogether. He is not taking any pancreatic enzymes and denies any issues with reflux at this time. ALLERGIES: PENICILLIN AND CODEINE. MEDICATIONS FROM HOME: Include vitamins, folic acid, omeprazole, Effexor, Lyrica and rosuvastatin. PAST MEDICAL HISTORY: Pancreatitis, pseudocyst, alcohol abuse, sober since 07/2020. PAST SURGICAL HISTORY: Negative. FAMILY HISTORY: Noncontributory. SOCIAL HISTORY: He does continue to smoke cigarettes [place] [address] CONSULTATION Name: KISHORE CHANEL Room: [address]#: [id number] Admission: 01/27/21 Attend Phys: Flynn Sarmiento Discharge: Date of : 80 Report #: [id number] any alcohol use. REVIEW OF SYSTEMS: A 12-point review of systems is essentially negative except what is mentioned in the HPI. PHYSICAL EXAMINATION: VITAL SIGNS: Temperature 36.4, pulse 51, respirations 16, blood pressure 108/52. HEART: Regular rate and rhythm. LUNGS: Clear. ABDOMEN: Soft, positive bowel sounds in all 4 quadrants with left upper to left lower quadrant pain to palpation. LABORATORY DATA: Hemoglobin is 12.8, white count 9.5, platelets 408. PT 10.9, INR 1. GFR is 125. His lipase on admission was 1948 and his LFTs have been completely normal. CT scan showed hepatic steatosis. He has a peripancreatic edema and stranding noted. No pseudocyst noted in the tail; however, in the body has a 1.9 x 0.3 x 1.2 cyst noted. IMPRESSION: 1. Abdominal pain, recurrent. 2. Pancreatitis with pseudocyst in the body. 3. Hepatic steatosis. 4. Anorexia. 5. Weight loss. PLAN: 1. Clear liquid diet. 2. We will start him on pancreatic enzymes. 3. We will keep his fluids going at 250 until we notice he is able to tolerate a diet. 4. Recommend the patient have an EUS at [facility] when he gets out to evaluate the pseudocyst in the body of the pancreas. Thank you for allowing us to participate in this patient's care. Please do not hesitate to call with any questions regarding this consult. By: [id number] Reddy MD /yeny
[2021-01-27 04:25] VITALS: BP 127/82
[2021-01-27] MEDS ORDERED: LYRICA 75 MG CA75 MG PO (04:30)
[2021-01-27 04:51] LABS: ABSOLUTE BASOPHILS 0.1 thou/uL (0.0-0.2); ABSOLUTE EOSINOPHILS 0.3 thou/uL (0.0-0.7); ABSOLUTE LYMPHOCYTES 2.6 thou/uL (0.8-5.3); ABSOLUTE MONOCYTES 0.6 thou/uL (0.0-1.2); ABSOLUTE NEUTROPHILS 5.9 thou/uL (1.6-8.1); BASOPHILS 1.3 %; EOSINOPHILS 2.9 %; HEMATOCRIT 43.4 % (42.0-52.0); HEMOGLOBIN 13.8 gm/dL (14.0-18.0); LYMPHOCYTES 27.8 %; MCH 27.1 pg (26.0-34.0); MCHC 31.8 g/dL (28.0-37.0); MCV 85.3 fL (80.0-100.0); MONOCYTES 6.2 %; MPV 6.4 fl. (7.2-11.1); NUCLEATED RBCS 0 /100WBC; PLATELET COUNT* 408 thou/uL (150-400); POLYS 61.8 %; RBC 5.09 mil/uL (4.50-6.00); RDW-CV 17.6 % (10.5-14.5); WBC 9.5 thou/uL (4.0-11.0)
[2021-01-27 04:59] LABS: CALCIUM 9.4 mg/dL (8.5-10.1); CREATININE 0.7 mg/dL (0.6-1.3); POTASSIUM 3.9 mmol/L (3.5-5.1)
[2021-01-27 05:02] LABS: APTT 28.8 Seconds (25.0-31.3); PROTIME 10.9 Seconds (9.20-11.50)
[2021-01-27 05:09] LABS: ALBUMIN 4.1 g/dL (3.4-5.0); TOTAL BILIRUBIN 0.4 mg/dL (<0.1-1.0); TOTAL PROTEIN 7.8 g/dL (6.4-8.2)
[2021-01-27 09:00] VITALS: BP 114/78
--- NOTE | 2021-01-27 12:28 | EKG ---
[place] [address] ELECTROCARDIOGRAM REPORT Name: KISHORE CHANEL Room: [place] [address] ADM IN [facility]#: [id number] Admission: 01/27/21 Attend Phys: Nasir Tejeda Discharge: Date of : 80 Date of Service: 01/27/21 0419 Report #: [id number] THIS REPORT FOR: //name// [facility] ED Test Date: 2021-01-27 Test Time: 04:19:33 Pat Name: KISHORE CHANEL Department: Room: [facility] Gender: M Wine Consultant: MANNY : 1980 Requested By: Mansi Rodriguez Order Number: [id number] MD: Neil Mota Measurements Intervals [place] Rate: 71 P: 26 [place]: 112 QRS: 15 QRSD: 99 T: 69 QT: 401 QTc: 436 Interpretive Statements Sinus rhythm Borderline short [place] interval RSR' in V1 or V2, right VCD or RVH Baseline wander in lead(s) II,aVF Compared to ECG 09/25/2020 10:18:31 Right ventricular hypertrophy now present RSR' in V1 or V2 now present Sinus tachycardia no longer present Electronically Signed On 01-27-2021 12:28:45 CDT by Neil Mota [email or web address] <ELECTRONICALLY SIGNED> By: Neil Mota MD, [facility] 01/27/21 1228 0419 0419 Neil Mota MD, [facility] /EPI
[2021-01-27 12:29] LABS: URINE BILIRUBIN NEGATIVE (Negative); URINE BLOOD NEGATIVE (Negative); URINE CLARITY CLEAR; URINE COLOR YELLOW; URINE GLUCOSE-RANDOM NEGATIVE (Negative); URINE KETONES 1+ (Negative); URINE LEUKOCYTES-REFLEX NEGATIVE (Negative); URINE NITRITE-REFLEX NEGATIVE (Negative); URINE PROTEIN NEGATIVE (Negative); URINE SPECIFIC GRAVITY <= 1.005 (1.005-1.030); URINE UROBILINOGEN 0.2 E.U./dl (0.2-1.0)
[2021-01-27 13:00] VITALS: BP 118/31
[2021-01-27 17:31] VITALS: BP 135/69
[2021-01-27 19:02] VITALS: BP 106/56
[2021-01-27 20:00] VITALS: BP 108/52
[2021-01-28 07:25] VITALS: BP 113/49
[2021-01-28 09:32] LABS: CALCIUM 8.3 mg/dL (8.5-10.1); CREATININE 0.6 mg/dL (0.6-1.3); POTASSIUM 3.7 mmol/L (3.5-5.1)
[2021-01-28 16:00] VITALS: BP 100/62
--- NOTE | 2021-01-28 17:48 | EKG ---
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
[2021-01-28 20:10] VITALS: BP 114/70
[2021-01-29 05:29] LABS: CALCIUM 8.4 mg/dL (8.5-10.1); CREATININE 0.6 mg/dL (0.6-1.3); POTASSIUM 3.6 mmol/L (3.5-5.1)
[2021-01-29 07:20] VITALS: BP 123/51
[2021-01-29 09:45] VITALS: BP 123/51
== END 2021-01-29 12:03 | disposition home or self-care (01) | DRG 439 ==
LOC: M.ERS 04:08 → M.2W 06:01 → M.TBA-ER 06:01 → M.2W 19:32
PROVIDERS: Personal Emergency Response Attendant; ADMIT Internal Medicine; ATTEND Internal Medicine
DX: K85.80 Other acute pancreatitis without necrosis or infection (principal); K86.3 Pseudocyst of pancreas; Z20.822 Contact with and (suspected) exposure to COVID-19; F17.210 Nicotine dependence, cigarettes, uncomplicated; K75.81 Nonalcoholic steatohepatitis (NASH); R63.0 Anorexia; Z60.2 Problems related to living alone; D64.9 Anemia, unspecified; Z79.899 Other long term (current) drug therapy; Z88.0 Allergy status to penicillin; Z88.6 Allergy status to analgesic agent; Z68.22 Body mass index [BMI] 22.0-22.9, adult; Z86.16 Personal history of COVID-19